=== PATIENT | male | born 1960 | race Caucasian/White ===

== ENCOUNTER 2016-11-12 23:20 | Observation (INO) | payer OTHER ==
[~2016-11-12] VITALS: Ht 180.3 cm; Wt 75.2 kg
[2016-11-12 23:44] LABS: HEMOGLOBIN 15.5 gm/dl (14.0-17.5); RED BLOOD COUNT 5.03 M/UL (4.20-5.50); WHITE BLOOD COUNT 13.1 K/UL (4.5-11.0)
[2016-11-13 00:07] LABS: BUN/CREATININE RATIO 22 (0-10)
[2016-11-13 08:01] LABS: BUN/CREATININE RATIO 25 (0-10)
[2016-11-13 08:07] LABS: HEMOGLOBIN 13.8 gm/dl (14.0-17.5); RED BLOOD COUNT 4.57 M/UL (4.20-5.50)
[2016-11-13 08:11] LABS: WHITE BLOOD COUNT 7.8 K/UL (4.5-11.0)
[2016-11-14 05:01] LABS: HEMOGLOBIN 13.3 gm/dl (14.0-17.5); RED BLOOD COUNT 4.38 M/UL (4.20-5.50)
[2016-11-14 05:21] LABS: BUN/CREATININE RATIO 20 (0-10)
--- NOTE | 2016-11-14 13:25 | NUR ---
Patient insisted on having his IV taken out and leaving against medical advise. He is A&O x3. Stated that he could be in [place] in 2 hours and he would call his insurance company to find out which doctor he could see. He understands that he is recovering from Aspirin overdose and that his blood pressure is high, but still insisted on leaving. He is not suicidal. He has a dog in his house in [place] and he needs to let it out. His sister and friend drove his car here so that he could leave. His sister was told that he needed to stay but she agreed for him to leave and stated to him that she would see him back at her house. Dr. Cuadra was made aware of his decision to leave AMA. Patient signed the AMA form after reading it and I showed him to the elevator.
== END 2016-11-14 13:37 | disposition left against medical advice (07) ==
LOC: ER1 23:20 → CCU 11-13 00:44 → ZEROF 11-13 00:44 → MED SURG 4 11-13 00:44 → CCU 11-13 02:30 → MED SURG 4 11-13 20:14
PROVIDERS: Emergency Medicine; Specialist/Technologist Athletic Trainer; ADMIT Internal Medicine
DX: T40.2X1A Poisoning by other opioids, accidental (unintentional), initial encounter (principal); T39.091A Poisoning by salicylates, accidental (unintentional), initial encounter; R09.02 Hypoxemia; G89.29 Other chronic pain; M54.9 Dorsalgia, unspecified; M25.562 Pain in left knee; M25.561 Pain in right knee
CPT/HCPCS: 36415; 36600; 71010; 80053; 80307; 82140; 82550; 82553; 82803; 83735; 83874; 84484; 85025; 85027; 85610; 85730; 93005; 96361; 96374; 96375; 99285; C9113; G0378; G0480; J2060; J2310; J7030; J7070